=== PATIENT | female | born 1940 | race Caucasian/White ===

== ENCOUNTER 2019-09-04 13:57 | Inpatient (IN) | payer MEDICARE, OTHER ==
[~2019-09-04] VITALS: Ht 165.1 cm; Wt 93.7 kg
[~2019-09-04 13:57] MED LIST: ARIMIDEX1 MG PO; AROMASIN; BENICAR 20MG TA20 MG PO; CALCIUM + D 6001 TAB PO; CALCIUM 600 PLU1 TAB PO; CELEBREX 200MG200 MG PO; DIOVAN160 MG PO; DULCOLAX S10 MG/SUPP RC; FOLIC ACID PO; FORTAMET500 MG PO; GABAPENTIN300 MG PO; GOOD NEIGH1200 MG/15 PO; LISINOPRIL5 MG PO; MIRAPEX 0.125MG PO; MIRAPEX0.25 MG PO; MOBIC15 MG PO; MULTI VITAMINS1 TAB PO; NEURONTIN300 MG/CAP PO; NORCO 325 MG-51 TAB PO; NOVLOG SQ; PRILOSEC 20MG20 MG PO; SENNA-S 50 MG-81 TAB PO; SIMVASTATIN10 MG PO; SYNTHROID0.075 MG/T PO; SYNTHROID0.088 MG/T PO; ULTRAM 50MG TAB50 MG PO; VITAMIN C500 MG PO; ZOCOR 10MG10 MG PO
[2019-09-04 18:00] VITALS: BP 115/49; PULSE 93; TEMP 98
--- NOTE | 2019-09-04 18:00 | NUR ---
Received report from Marla @ Surgical department. Assessment was completed and patient currently resting in recliner at this time, call light in reach and alarm is set. Patient was reported to be a 2 to 1 assist with walker with transfers. She has SHRADDHA Hose and wears her SCD's. She is continent of bowel and bladder per report. She takes pills whole with water. Due to Hgb trending downward going to keep an eye on this lab. Her last BM was yesterday. She is a Full code. Has aquacels in place to left hip from recent surgery. Will continue to monitor.
--- NOTE | 2019-09-04 19:00 | NUR ---
Patient was a one assist pivot transfer from recliner to bed this evening.
[2019-09-04 19:04] VITALS: BP 115/49; PULSE 93; TEMP 98
--- NOTE | 2019-09-04 20:00 | NUR ---
PATIENT RESTING IN BED DURING SHIFT CHANGE REPORT FROM DAY SHIFT NURSE. BED ALARM ENGAGED. SEE eMAR FOR PRN MEDS GIVEN
--- NOTE | 2019-09-05 02:33 | NUR ---
RESTING IN BED WITH EYES CLOSED, DOES NOT AWAKEN WHEN ROOM ENTERED. BED ALARM ON.
[2019-09-05 05:00] VITALS: BP 110/42; PULSE 89; TEMP 97.7
--- NOTE | 2019-09-05 07:15 | NUR ---
PATIENT RESTING IN BED DURING SHIFT CHANGE REPORT GIVEN TO DAY SHIFT NURSE. BED ALARM ON
[2019-09-05 07:16] LABS: HEMATOCRIT 21.4 % (37.0-47.0); HEMOGLOBIN 7.1 g/dl (12.5-16.0)
[2019-09-05 17:13] VITALS: BP 118/44; PULSE 87; TEMP 98.6
--- NOTE | 2019-09-05 20:00 | NUR ---
PATIENT RESTING IN BED DURING SHIFT CHANGE REPORT FROM DAY SHIFT NURSE.. BED ALARM ON.
--- NOTE | 2019-09-06 01:23 | NUR ---
PATIENT RESTING WITH EYES CLOSED, DOES NOT AWAKEN WHEN ROOM ENTERED. BREATHING NONLABORED AND CÉSAR. BED ALARM ON.
[2019-09-06 05:04] VITALS: BP 112/45; PULSE 86; TEMP 98.2
[2019-09-06 07:08] LABS: BASO % 0.4 % (0.0-2.0); EOS # 0.2 (0.0-0.7); EOS % 3.3 % (0-4.0); GRAN # 4.8 (1.4-6.5); GRAN % 70.9 % (42.2-75.2); LYMPH % 15.1 % (20.0-51.0); MEAN CELL VOLUME 92 fl (80.0-100.0); MEAN CORPUSCULAR HGB CONC 32 g/dl (33.0-37.0); MEAN PLATELET VOLUME 10.7 fl (7.4-10.4); MONO # 0.6 (0.1-0.6); MONO % 9.1 % (1.7-9.3); PLATELET COUNT 203 K/mm3 (130-400); RED BLOOD COUNT 2.36 M/mm3 (4.10-5.30); REDCELL DISTRIBUTION WIDTH-CV 13.9 % (11.5-14.5)
[2019-09-06 07:10] LABS: HEMATOCRIT 21.7 % (37.0-47.0); MEAN CORPUSCULAR HEMOGLOBIN 30 pg (27.0-31.0)
[2019-09-06 07:15] LABS: CALCIUM 8.6 mg/dL (8.4-10.2); CREATININE, serum 1.73 (0.52-1.25); POTASSIUM 4.7 mmol/L (3.4-5.0)
--- NOTE | 2019-09-06 08:03 | NUR ---
PATIENT RESTING IN BED DURING SHIFT CHANGE REPORT GIVEN TO DAY SHIFT NURSE. BED ALARM ON.
--- NOTE | 2019-09-06 09:18 | NUR ---
GILES met with the patient and her , Gen (ph#[phone]), to complete initial intake, as the patient is new to [facility]. The patient lives in [place] with her . She reports independence with ADLs and has canes. The patient states that if she is to need a FWW upon discharge, then she would prefer it from [facility]. The patient's PCP is Dr. Susie Hope and she receives her medications at [facility]. She reports no difficulties obtaining her meds. The patient's advanced directives are in EMR. Her DPOA-HC is her . SW to continue to follow to ensure a safe discharge.
--- NOTE | 2019-09-06 12:21 | NUR ---
Pt's Gen visited earlier, daughter Valeria here now.
[2019-09-06 16:03] VITALS: BP 99/48; PULSE 87; TEMP 97.8
--- NOTE | 2019-09-06 18:08 | NUR ---
Bedside report from ETHEL Antoine. Pt to chair for breakfast and lunch, returned to bed, alarm on, call lt in reach. A&O, pleasantly cooperative, denies numbness or S/S of low Hgb, recheck labs Friday, aspirin on hold. Clarified orders on SSI. Aquacel dressing has some shadowing, distal gauze and tegaderm CDI. LFA swelling is chronic since breast cancer, per pt.
--- NOTE | 2019-09-06 21:00 | NUR ---
Patient awakened for HS meds all reviewed and given along with tramadol for pain. Snack of jello given. SCDS on.
--- NOTE | 2019-09-07 02:31 | NUR ---
Rests with eyes closed.
[2019-09-07 04:24] VITALS: BP 145/49; PULSE 93; TEMP 97.9
--- NOTE | 2019-09-07 05:06 | NUR ---
Patient states she slept well tonight.
--- NOTE | 2019-09-07 11:40 | NUR ---
SW presented and explained the IM form to the patient and her . The patient verbalized understanding, signed, and she was provided a copy.
--- NOTE | 2019-09-07 14:07 | NUR ---
Admission QIM scores were reviewed by the team. Code of 3 chosen for toileting hygiene was determined by team discussion to be the most usual performance before interventions for this patient during the assessment period. Code of 2 chosen for lower body dressing was determined by team discussion to be the most usual performance before interventions for this patient during the assessment period. Code of 3 chosen for sit to stand was determined by team discussion to be the most usual performance for this patient during the assessment period. Code of 3 chosen for chair/bed to chair transfers was determined by team discussion to be the most usual performance for this patient during the assessment period.--Kim Finney,
--- NOTE | 2019-09-07 14:56 | NUR ---
GILES met with the patient to schedule a family meeting. A family meeting was scheduled for tomorrow at 1315. GILES notified IPR Director and ST. [facility] to continue to follow.
[2019-09-07 16:01] VITALS: BP 114/50; PULSE 89; TEMP 98.9
--- NOTE | 2019-09-07 19:24 | NUR ---
Shift summary: Bedside report from ETHEL Puri. Pt given PRN bowel meds, with results. A&O, pleasantly cooperative, amb to BR with assist and walker. Dressings intact with shadowing. Family visited today. Pt in chair with feet up at shift change. Report in room to ETHEL Puri.
--- NOTE | 2019-09-07 20:30 | NUR ---
HS meds all reviewed and given. Encouraged to call if needs additional pain meds during the night. Assisted with knee hi rylie hose off. Declines HS snack and care. Up to the the bathroom with mod assist to stand. Gait slow and breathing labored with activity (reports from pain not so much shortness of breath). Manages all toileting tasks. Max assist with legs into bed. SCD's on and ice pack to left hip.
--- NOTE | 2019-09-08 01:35 | NUR ---
Patient states has been sleeping until now. Up to the bathroom with IP PAR[place] and rests back in bed. Edgar given for pain.
--- NOTE | 2019-09-08 02:51 | NUR ---
Patient rests with eyes closed. Respirations with ease.
[2019-09-08 05:21] VITALS: BP 113/75; PULSE 83; TEMP 97.8
--- NOTE | 2019-09-08 05:42 | NUR ---
PATIENT REPORT LEFT HIP PAIN 03/13. JUST RETURNED FROM THE BATHROOM. NORCO GIVEN.
[2019-09-08 07:45] LABS: HEMATOCRIT 21.4 % (37.0-47.0)
[2019-09-08] MEDS ORDERED: DULCOLAX TAB5 MG PO (07:48)
--- NOTE | 2019-09-08 15:38 | NUR ---
GILES attended a family meeting with the patient, her (Gen), and daughter (Valeria). Also present was IPR Director, PT, OT ST, and her RN. IPR Director started by explaining the purpose of the meeting. PT, OT, ST then discussed the patient's progress with a tentative discharge for next Friday, 09/17, with home health services for PT/OT. The patient and her family were in agreeance to this. They state that they have a contractor coming out this Friday to put up grabbars and handrails. Valeria reports that her older sister plans to come and stay with the patient and her a few weeks after discharge. The patient states that they would also need a FWW. The team answered all of patient and families questions. GILES then presented and reviewed the IPR Team Conference Note with the patient and provided her with Medicare.gov's list of home health agencies that serve [place]. [facility] and fax a referral to Jones at [facility]. [facility] to continue to follow.
[2019-09-08 17:23] VITALS: BP 124/89; PULSE 87; TEMP 98.2
--- NOTE | 2019-09-08 20:00 | NUR ---
PATIENT RESTING IN CHAIR WATCHING TV, CHAIR ALARM ON. REPORTS DOES NOT THINK ULMRAM IS HELPING AND MAY ONLY NEED NORCO AT HS TONIGHT.
--- NOTE | 2019-09-08 20:03 | NUR ---
Shift summary: Bedside report from ETHEL Puri. Pt's family visited, attended family meeting. Pt's pain rating increased with activity, see new orders for norco 1-2 tabs PRN. To chair between therapies all day, legs elevated, TEDS to BLE, glasses in place. Resumed home Dulcolax tab at noc. Denies S/S of low Hgb, f/u labs Friday. Bedside report to ETHEL Antoine.
--- NOTE | 2019-09-09 02:37 | NUR ---
PATIENT RESTING QUIETLY IN BED WITH EYES CLOSED, DOES NOT AWAKEN WHEN ROOM ENTERED. BED ALARM ON.
[2019-09-09 04:07] VITALS: BP 135/54; PULSE 94; TEMP 98.3
--- NOTE | 2019-09-09 07:23 | NUR ---
Patient resting in bed during shift change report given to day shift nurse. Bed alarm on.
--- NOTE | 2019-09-09 09:26 | NUR ---
Patient attending therapies at this time. Placed Lidoderm patch above right knee for pain management. Patient denies questions this morning. Given prn [place] that has been effective. Will continue to monitor.
[2019-09-09 15:23] VITALS: BP 118/56; PULSE 87; TEMP 97.7
--- NOTE | 2019-09-09 19:56 | NUR ---
Patient attended all therapies this shift. She reported pain to her right knee and this nurse placed a pain patch on it as ordered. Patient was reporting increased pain to that knee following therapies. Will discuss with Dr. Eastman tomorrow. Patient has shadowing to her aquacel dressing. Will call ortho tomorrow to get clarification if dressing can be changed. No orders found. Patient currently resting in bed at this time, call light in reach and alarm is set. Reported off to night nurse.
--- NOTE | 2019-09-09 21:30 | NUR ---
PT RESTING IN BED. RELATES PAIN IS MUCH BETTER- "7" FROM A TEN. REVIEWED PAIN RATING WITH PT. STILL RATED IT 7. SEE MAR FOR SCHEDULED ULTRAM. PT RELATES PAIN IS IN THE LEFT KNEE. DOES NOT FEEL IT IS ARTHRIC- SHE REPORTED HAD KNEE SURGERY IN THE PAST AND RELIEVED THAT PAIN. RT HIP SWOLLEN WITH DEEP PURPLE BRUISING EXTENDING TOWARDS BUTTOCKS. REFUSED ICE PACK TO HIP OR KNEE. AGREEABLE TO SCD'S. REMOVED TEDS OFF TO RELIEVE SKIN. CALL LIGHT IN REACH. BED ALARM SET.
[2019-09-10 05:30] VITALS: BP 126/53; PULSE 86; TEMP 98.6
--- NOTE | 2019-09-10 10:42 | NUR ---
Call placed to Dr. Noble and recieved orders for a Left knee 3 view xray to include a merchant view. Patient was updated on this new order.
--- NOTE | 2019-09-10 11:03 | NUR ---
Patient resting in recliner with legs elevated and call light in reach. Call placed to Dr. Noble nurse and received the okay to change out patient's left hip aquacel bandage. Insicion showed no swelling, redness or drainage. New aquacel is in place.
--- NOTE | 2019-09-10 13:53 | NUR ---
Left knee xray was completed. Will update patient on results.
--- NOTE | 2019-09-10 17:18 | NUR ---
Note the order for the left knee xray for this patient was ordered by Dr. Nathen Noble. It was put in wrong to the system.
[2019-09-10 17:39] VITALS: BP 126/52; PULSE 88; TEMP 99.4
--- NOTE | 2019-09-10 18:00 | NUR ---
Patient was notified of x-ray results and she voiced understanding.
--- NOTE | 2019-09-10 20:30 | NUR ---
PT C/O CONSTIPATION. GAVE BOWEL MEDS AND SUPP. PT ONLY ABLE TO PASS SMALL HARD PIECES BM. DIGITALLY REMOVED SOME HARD STOOL. GAVE FLEETS ENEMA. AFTER SITTING ON BSC FOR AT LEAST HALF HR PT ABLE TO PASS XLG BROWN STOOL. RECTUM VERY SORE. OINTMENT APPLIED. SEE MAR FOR PAIN MED GIVEN. BACK TO BED. NEW ICE PACK TO LT KNEE. CALL LIGHT IN REACH. BED ALARM SET. NO FURTHER NEEDS AT THIS TIEM.
[2019-09-11 05:36] VITALS: BP 113/49; PULSE 77; TEMP 97.4
--- NOTE | 2019-09-11 06:29 | NUR ---
ASSISTED PT TO BSC. HAD LIQUID INCONT STOOL.
--- NOTE | 2019-09-11 11:00 | NUR ---
arrived for visit prior to pt going to group therapy.
--- NOTE | 2019-09-11 12:43 | NUR ---
Pt toileted, dressings without shadowing, returned to bed, assisted with both legs into bed, SCDs to BLE, TEDs in place, yellow grippers in place, bed alarm on, ice to Left knee.
--- NOTE | 2019-09-11 14:43 | NUR ---
Pt bedresting, awoke when nurse rounded, ice to knee, denies needs, alarm on
[2019-09-11 16:02] VITALS: BP 104/38; PULSE 85; TEMP 98.3
--- NOTE | 2019-09-11 19:21 | NUR ---
Pt to chair for supper, returned to bed after toileting, orders changed for lidocaine. SCDs to BLE, gripper socks, ice to L knee, alarm on, call lt in reach, report to ETHEL Ibarra
--- NOTE | 2019-09-11 21:12 | NUR ---
PT RESTING IN BED. FEELS MUCH BETTER SINCE BM'S. PAIN TO LT KNEE REMAINS LEVEL7/10. MINOR EDEMA IN LT KNEE. CALL LIGHT IN REACH. BED ALARM SET.
[2019-09-12 05:29] VITALS: BP 127/64; PULSE 91; TEMP 98
--- NOTE | 2019-09-12 08:39 | NUR ---
Pt to chair, applied lotion to BLE, donned TEDS, glasses in place, call lt in reach, pt used IS independently. Ice to L knee.
--- NOTE | 2019-09-12 10:58 | NUR ---
Farooq little with walker, CGA. Returned to chair, BLE up, ice to L knee.
--- NOTE | 2019-09-12 12:23 | NUR ---
Ice pack to left knee. visiting.
[2019-09-12 15:19] VITALS: BP 127/56; PULSE 80; TEMP 98.7
--- NOTE | 2019-09-12 20:00 | NUR ---
PT RESTING IN BED. A&O X4. SHIFT ASSESSMENT COMPLETED. PAIN CONTROLLED WITH ULTRAM/NORCO. CONSTIPATION ISSUES NOW RESOLVED. NO NEEDS AT THIS TIME. CALLIGHT IN REACH. BED ALARM SET.
--- NOTE | 2019-09-12 22:30 | NUR ---
PT C/O LT LOWER LEG HAS INCREASED PAIN. TOOK OFF SHRADDHA EILEEN, AND SCD'S FOR AWHILE. SEE MAR FOR NORCO GIVEN. LLE WARM TO TOUCH. PULSES STRONG.
--- NOTE | 2019-09-12 23:24 | NUR ---
PT CALLED BACK TO NURSE. LOWER LEG STILL PAINFUL. DENIES NUMBNESS OR TINGLING. GOOD STRONG PULSES. NO INCREASE IN EDEMA. SLIPPERS OFF. ELEVATE ON PILLOWS, NORCO GIVEN. ICE PACK TO LT KNEE. PT APPRECIATIVE OF CARES. CALL LIGHT IN REACH.
[2019-09-13 05:15] VITALS: BP 118/54; PULSE 73; TEMP 98.1
[2019-09-13 06:45] LABS: MEAN CELL VOLUME 95 fl (80.0-100.0); MEAN CORPUSCULAR HGB CONC 32 g/dl (33.0-37.0); MEAN PLATELET VOLUME 9.8 fl (7.4-10.4); PLATELET COUNT 259 K/mm3 (130-400); RED BLOOD COUNT 2.56 M/mm3 (4.10-5.30)
[2019-09-13 06:48] LABS: HEMATOCRIT 24.3 % (37.0-47.0); HEMOGLOBIN 7.7 g/dl (12.5-16.0); MEAN CORPUSCULAR HEMOGLOBIN 30 pg (27.0-31.0)
[2019-09-13 07:00] LABS: CALCIUM 8.9 mg/dL (8.4-10.2); CREATININE, serum 1.61 (0.52-1.25); MAGNESIUM 1.9 mg/dL (1.6-2.3); POTASSIUM 4.1 mmol/L (3.4-5.0)
[2019-09-13 08:39] LABS: ANISOCYTOSIS 1+; BAND 1 % (0-10); EOSINOPHIL 3 % (0-4); LYMPHOCYTE 8 % (20.0-51.0); NEUTROPHILS 84 % (42.0-75.2); PLATELET ESTIMATE NORMAL (NORMAL)
--- NOTE | 2019-09-13 09:23 | NUR ---
Patient attending therapies this morning. Reported pain to right knee and has been using her roll on pain med with good effect. Patient denies any questions this morning. She did receive her prn pain meds this AM prior to therapy starting. Will continue to monitor.
--- NOTE | 2019-09-13 13:05 | NUR ---
GILES met with the patient to follow up after the weekend. The patient reports that she is doing well. She states that she was able to play her games on her computer this weekend. The patient reports that she would prefer to get her FWW from [facility]. Patient Choice Form signed by the patient and she was provided a copy. GILES contacted and faxed the referral to Jones at [facility]. GILES awaiting their screen. GILES to obtain FWW script and will fax to [facility]. GILES to continue to follow.
--- NOTE | 2019-09-13 13:26 | NUR ---
Patient is independent with eating. She takes her pills whole with water. She required staff to help her get one of her legs out of bed, other then that she was able to do the rest herself. She is able to stand up with one attempt with staff observation only. Patient denies questions this afternoon.
[2019-09-13 16:37] VITALS: BP 133/61; PULSE 76; TEMP 97.7
--- NOTE | 2019-09-13 16:58 | NUR ---
Patient had a multiple visitors this afternoon along with her . She is currently resting in her recliner, call light in reach and alarm is set.
--- NOTE | 2019-09-13 17:59 | NUR ---
Patient is ready for bed and is lying in bed, call light in reach and bed alarm. Patient reporting 8/10 pain and given prn [place].
--- NOTE | 2019-09-13 20:00 | NUR ---
PATIENT RESTING IN BED DURING SHIFT CHANGE REPORT FROM DAY SHIFT NURSE. BED ALARM ON.
--- NOTE | 2019-09-14 01:29 | NUR ---
RESTING IN BED WITH EYES CLOSED, DOES NOT AWAKEN WHEN DOOR TO ROOM OPENED. BED ALARM ON.
--- NOTE | 2019-09-14 03:32 | NUR ---
RESTING WITH EYES CLOSED IN BED, BED ALARM ON. DOES NOT AWAKEN WHEN DOOR TO ROOM OPENED. BREATHING NONLABORED AND EVEN.
[2019-09-14 04:53] VITALS: BP 130/57; PULSE 76; TEMP 98
--- NOTE | 2019-09-14 07:22 | NUR ---
PATIENT SITTING UP IN BED, FINISHED EATING BREAKFAST, DURING SHIFT CHANGE REPORT GIVEN TO DAY SHIFT NURSE. BED ALARM ON.
--- NOTE | 2019-09-14 09:43 | NUR ---
Patient had a medium loose stool this morning. Reports having pain to right knee this morning and given prn [place] with good effect. Currently working with therapy at this time. She tolerated breakfast well today. She denied any questions. Her daughter stopped by this morning to visit with her.
--- NOTE | 2019-09-14 11:01 | NUR ---
Jones, at [facility], reports that they are able to accept the patient for services. SW to inform the patient and will continue to follow.
[2019-09-14 16:09] VITALS: BP 116/59; PULSE 78; TEMP 98
--- NOTE | 2019-09-14 19:45 | NUR ---
PATIENT IN BED RESTING DURING SHIFT CHANGE REPORT FROM DAY SHIFT NURSE. BED ALARM ON.
--- NOTE | 2019-09-14 20:36 | NUR ---
Patient attended all therapies today. She continues to have some bilateral leg edema and wears her compression stockings. Patient has left knee pain and was given ice packs, prn [place], as well as use of Icy Hot Lidocaine roll on through out day. All of which helped manage pain well. Follow up appointments were made for Dr. Noble and PCP Dr. Hope and were put in the computer. Patient required staff to assist her with helping her lift her leg into and out of the bed. She used her call light appropriatly and was in a pleasent mood this shift. She ate independently and did all her own grooming. Reported off to night nurse.
--- NOTE | 2019-09-15 02:00 | NUR ---
PATIENT RESTING IN BED WITH EYES CLOSED, DOES NOT AWAKEN WHEN DOOR TO ROOM IS OPENED. BREATHING NONLABORED AND EVEN. BED ALARM ON.
[2019-09-15 05:15] VITALS: BP 127/65; PULSE 78; TEMP 98
--- NOTE | 2019-09-15 07:30 | NUR ---
PATIENT RESTING IN BED DURING SHIFT CHANGE REPORT GIVEN TO DAY SHIFT NURSE. BED ALARM ON.
--- NOTE | 2019-09-15 12:40 | NUR ---
Bedside report from ETHEL Antoine. Pt making steady progess, A&O, pleasantly cooperative, norco and ice and elevation for Left knee pain. Loose cont BM this am.
--- NOTE | 2019-09-15 15:09 | NUR ---
GILES met with the patient to present and discuss the IPR Team Conference Note. GILES reviewed the team's recommendation of a discharge this Friday with home health services for PT/OT and a FWW. The patient is still in agreeance to the discharge with [facility]. GILES contacted [facility] for the FWW order. [facility] reports that their DME person is out and that they have been referring patient's to send their orders to somewhere else. GILES informed the patient of this. The patient then chose [facility]. GILES contacted and faxed the patient's FWW order to Cherie at [facility] and requested that they deliver the FWW to the patient's room. GILES to continue to follow.
[2019-09-15 16:12] VITALS: BP 115/50; PULSE 77; TEMP 98.1
--- NOTE | 2019-09-15 19:26 | NUR ---
Bedside report to ETHEL Ibarra. Pt malia mod I in rm w/ walker, she was in bed upon shift change, walker and tray in reach.
--- NOTE | 2019-09-15 21:00 | NUR ---
PT RESTING IN BED. WATCHING TV. PT RELATES FEELS SAFE WITH INDEPENDENT STATUS. ENC TO CALL FOR ASSIST IF NEEDED. PT AGREED. SEE MAR FOR PAIN MED GIVEN. PT GETTING READY TO TAKE OFF SHRADDHA HOSE GET READY FOR BED. CALL LIGHT IN REACH.
[2019-09-16 05:18] VITALS: BP 132/55; PULSE 76; TEMP 97.8
--- NOTE | 2019-09-16 15:02 | NUR ---
[facility] delivered the patient's FWW to her room. GILES met with the patient to review discharge tomorrow, 09/17. The patient had no other questions or concerns for SW. GILES presented and explained the IM form. The patient verbalized understanding, signed, and she was provided a copy. SW to continue to follow.
--- NOTE | 2019-09-16 15:23 | NUR ---
Initial visit; Patient thanked Titrator for looking in on her and offering God's blessings.
[2019-09-16 18:39] VITALS: BP 121/56; PULSE 84; TEMP 98.4
--- NOTE | 2019-09-16 19:56 | NUR ---
Shift summary: Bedside report from ETHEL Ibarra. Pt malia mod I in rm w/ walker. [place] for pain, declines ice packs today, states they are not helping, enc use of own lidocaine roll-on. and friends visited. Pt denies needs. Plans home tomorrow. Bedside report to ETHEL Ibarra.
--- NOTE | 2019-09-16 21:18 | NUR ---
PT UP TO BR. NO BM. PASSING FLATUS. MOD I IN ROOM. STEADY GAIT WITH WALKER. SEE MAR FOR PAIN MED GIVEN.
[2019-09-17 05:42] VITALS: BP 119/57; PULSE 70; TEMP 97.8
[2019-09-17 07:55] LABS: BASO % 0.4 % (0.0-2.0); EOS # 0.1 (0.0-0.7); EOS % 2.3 % (0-4.0); GRAN # 3.7 (1.4-6.5); GRAN % 77.7 % (42.2-75.2); LYMPH # 0.5 (1.2-3.4); LYMPH % 11.1 % (20.0-51.0); MEAN CELL VOLUME 96 fl (80.0-100.0); MEAN CORPUSCULAR HGB CONC 32 g/dl (33.0-37.0); MEAN PLATELET VOLUME 9.8 fl (7.4-10.4); MONO # 0.4 (0.1-0.6); MONO % 7.7 % (1.7-9.3); PLATELET COUNT 306 K/mm3 (130-400); RED BLOOD COUNT 2.61 M/mm3 (4.10-5.30); REDCELL DISTRIBUTION WIDTH-CV 16.7 % (11.5-14.5)
[2019-09-17 07:57] LABS: HEMOGLOBIN 7.9 g/dl (12.5-16.0); MEAN CORPUSCULAR HEMOGLOBIN 30 pg (27.0-31.0)
[2019-09-17 08:04] LABS: CALCIUM 8.9 mg/dL (8.4-10.2); CREATININE, serum 1.52 (0.52-1.25); MAGNESIUM 1.7 mg/dL (1.6-2.3); POTASSIUM 3.9 mmol/L (3.4-5.0)
[2019-09-17] MEDS ORDERED: ASPI325T6 PO (08:37)
[2019-09-17] MEDS ORDERED: TYLENOL 325MG325 MG PO (08:38)
[2019-09-17] MEDS ORDERED: Ferrous Sulfate PO (08:39)
[2019-09-17] MEDS ORDERED: NORCO 325 MG-51 TAB PO (08:40)
--- NOTE | 2019-09-17 09:17 | NUR ---
The patient is to discharge back home with her today, 09/17, with home health services for PT/OT/jail. GILES faxed the patient's discharge orders to Jones at [facility]. No additional needs at this time.
--- NOTE | 2019-09-17 11:10 | NUR ---
Discharge education provided to patient. Educated on signs and symptoms of infection and when to call provider. Educated on follow up appointment and medication safety. All questions answered. Denies pain or further needs at this time. Patient out by wheelchair with family and surgical staff.
== END 2019-09-17 11:10 | disposition home health service (06) | DRG 560 ==
LOC: MEDICAL 13:57
PROVIDERS: ADMIT Internal Medicine
DX: S72.142D Displaced intertrochanteric fracture of left femur, subsequent encounter for closed fracture with routine healing (principal); N17.9 Acute kidney failure, unspecified; W19.XXXD Unspecified fall, subsequent encounter; E78.5 Hyperlipidemia, unspecified; E11.22 Type 2 diabetes mellitus with diabetic chronic kidney disease; I12.9 Hypertensive chronic kidney disease with stage 1 through stage 4 chronic kidney disease, or unspecified chronic kidney disease; N18.3 Chronic kidney disease, stage 3 (moderate); D63.1 Anemia in chronic kidney disease; G25.81 Restless legs syndrome; E03.9 Hypothyroidism, unspecified; Z79.891 Long term (current) use of opiate analgesic; Z79.4 Long term (current) use of insulin; Z96.611 Presence of right artificial shoulder joint; Z96.653 Presence of artificial knee joint, bilateral; Z85.3 Personal history of malignant neoplasm of breast; Z92.3 Personal history of irradiation; Z92.21 Personal history of antineoplastic chemotherapy; Z90.710 Acquired absence of both cervix and uterus
CPT/HCPCS: 99222-AI; 99231-AI; 99232-AI; 99239; J1815

== ENCOUNTER → 2020-05-10 | Outpatient (CLI) | payer MEDICARE, OTHER ==
[~2020-05-10] MED LIST changes: +ASPI325T6 PO; +DULCOLAX TAB5 MG PO; +Ferrous Sulfate PO; +TYLENOL 325MG325 MG PO
== END ==
LOC: COL.VAS 13:26
DX: R60.0 Localized edema (principal)

== ENCOUNTER → 2020-11-17 | Outpatient (CLI) | payer MEDICARE | LOC: COL.RAD 13:00 | DX: N28.89 Other specified disorders of kidney and ureter (principal); N18.4 Chronic kidney disease, stage 4 (severe); Z96.0 Presence of urogenital implants ==

== ENCOUNTER 2021-08-07 14:45 | Emergency (ER) | payer MEDICARE ==
[~2021-08-07] VITALS: Ht 165.1 cm; Wt 81.8 kg
[2021-08-07 14:48] VITALS: TEMP 98.4
[2021-08-07 16:21] LABS: ALBUMIN 2.8 gm/dL (3.4-4.8); BILIRUBIN,TOTAL 0.7 mg/dL (0.2-1.2); CALCIUM 8.8 mg/dL (8.4-10.2); CREATININE, serum 1.66 mg/dL (0.57-1.11); POTASSIUM 4.1 mmol/L (3.5-4.5); TOTAL PROTEIN 5.8 gm/dL (6.2-8.1)
[2021-08-07 20:25] VITALS: BP 155/98; PULSE 71
== END 2021-08-07 20:25 | disposition home or self-care (01) ==
LOC: COL.ER 14:45
PROVIDERS: Family Medicine
DX: S32.9XXA Fracture of unspecified parts of lumbosacral spine and pelvis, initial encounter for closed fracture (principal); E78.5 Hyperlipidemia, unspecified; E11.22 Type 2 diabetes mellitus with diabetic chronic kidney disease; I12.9 Hypertensive chronic kidney disease with stage 1 through stage 4 chronic kidney disease, or unspecified chronic kidney disease; N18.30 Chronic kidney disease, stage 3 unspecified; E03.9 Hypothyroidism, unspecified; Z79.890 Hormone replacement therapy; X58.XXXA Exposure to other specified factors, initial encounter